=== PATIENT | female | born 1995 | race Caucasian/White ===

== ENCOUNTER → 2021-03-23 | Day surgery (SDC) | payer OTHER ==
[~2021-03-23] VITALS: Ht 162.6 cm; Wt 82.9 kg
[~2021-03-23] MED LIST: ATARAX 25MG25 MG/TAB PO; COLLAGEN PO; ELDERBERRY PO; MERIBIN5 MG PO; NORCO 325 MG-51 TAB PO; TYLENOL 500MG500 MG PO; VITAMIN D3400 I1 PO; VTAMINC250TA PO; ZOFRAN 4MG T4 MG/TAB PO
[2021-03-23 09:02] VITALS: BP 116/71; PULSE 82; TEMP 98.2
[2021-03-23 12:00] VITALS: BP 106/56; PULSE 74; TEMP 98.2
--- NOTE | 2021-03-23 12:00 | NUR ---
Patient returned to [place] [facility] via cart. Drowsy, wakes easily. Postop vital signs started. Three bandaids over lap sites are dry and intact. Patient is resting. Will continue to monitor.
[2021-03-23 12:15] VITALS: BP 110/65; PULSE 77
--- NOTE | 2021-03-23 12:15 | NUR ---
Patient sitting up in bed, report discomfort while coughing. Provided blanket and instructed patient on splinting while coughing. Educated no lifting when discharged. Patient agreeed to try pepsi and muffin. Rails up, call light in reach.
[2021-03-23 12:30] VITALS: BP 104/61; PULSE 86
--- NOTE | 2021-03-23 12:30 | NUR ---
Patient sitting up in bed, tolerating food and drink well. Vital signs are stable. Patient request to get up to bathroom, was able to void without difficulty. Patient reports pain when getting up from bed, but says does not need pain medication when sitting still. Rails up, call light in reach.
--- NOTE | 2021-03-23 12:57 | NUR ---
called for ride home.
--- NOTE | 2021-03-23 13:15 | NUR ---
Reviewed discharge instructions and education material with patient, reports understanding. Discontinued IV with no complications. Instructed to call out for help dressing and transportation.
--- NOTE | 2021-03-23 13:40 | NUR ---
Patient transfered to personal vehicle via wheelchair.
== END ==
LOC: SDCO 07:43
DX: K42.9 Umbilical hernia without obstruction or gangrene (principal); C53.9 Malignant neoplasm of cervix uteri, unspecified; Z20.822 Contact with and (suspected) exposure to COVID-19; Z98.890 Other specified postprocedural states; Z98.84 Bariatric surgery status
CPT/HCPCS: C1781; J0690; J1100; J1885; J2405; J2550; J2704; J3010; J7120